=== PATIENT | female | born 1990 | race Caucasian/White ===

== ENCOUNTER 2017-04-14 22:59 | Outpatient (CLI) | payer OTHER ==
[2017-04-15 01:32] LABS: ADD UMIC YES; UR ASCORBIC ACID NEGATIVE (NEGATIVE); UR BACTERIA FEW /HPF (NONE SEEN); UR BILIRUBIN (Dip) NEGATIVE (NEGATIVE); UR BLOOD (Dip) NEGATIVE (NEGATIVE); UR CLARITY CLEAR (CLEAR); UR COLOR STRAW (YELLOW); UR GLUCOSE (Dip) NEGATIVE (NEGATIVE); UR KETONES (Dip) NEGATIVE (NEGATIVE); UR LEUKOCYTE ESTERASE (Dip) 3+ Leu/ul (NEGATIVE); UR NITRITE (Dip) NEGATIVE (NEGATIVE); UR RBC 1 /HPF (0-5); UR SPECIFIC GRAVITY (Dip) 1.006 (1.003-1.030); UR TOTAL PROTEIN (Dip) NEGATIVE (NEGATIVE); UR UROBILINOGEN (Dip) NEGATIVE (NEGATIVE); UR WBC 1 /HPF (0-5)
== END 2017-04-15 02:30 | disposition home or self-care (01) ==
LOC: OBT 22:59 → L-D 23:01
DX: O26.892 Other specified pregnancy related conditions, second trimester (principal); Z3A.27 27 weeks gestation of pregnancy; R10.2 Pelvic and perineal pain
CPT/HCPCS: 76817; 81001

== ENCOUNTER 2017-05-27 12:09 | Outpatient (CLI) | payer OTHER ==
[2017-05-27 13:15] LABS: ADD UMIC YES; UR ASCORBIC ACID NEGATIVE (NEGATIVE); UR BACTERIA FEW /HPF (NONE SEEN); UR BILIRUBIN (Dip) NEGATIVE (NEGATIVE); UR BLOOD (Dip) NEGATIVE (NEGATIVE); UR CLARITY SLIGHTLY CLOUDY (CLEAR); UR COLOR YELLOW (YELLOW); UR GLUCOSE (Dip) NEGATIVE (NEGATIVE); UR KETONES (Dip) NEGATIVE (NEGATIVE); UR LEUKOCYTE ESTERASE (Dip) 3+ Leu/ul (NEGATIVE); UR NITRITE (Dip) NEGATIVE (NEGATIVE); UR RBC 1 /HPF (0-5); UR SPECIFIC GRAVITY (Dip) 1.013 (1.003-1.030); UR SQUAMOUS EPITHELIAL CELL FEW /HPF (FEW); UR TOTAL PROTEIN (Dip) NEGATIVE (NEGATIVE); UR UROBILINOGEN (Dip) NEGATIVE (NEGATIVE); UR WBC 16 /HPF (0-5)
== END 2017-05-27 14:10 | disposition home or self-care (01) ==
LOC: OBT 12:09 → L-D 12:11 → OBT 14:10
DX: O62.9 Abnormality of forces of labor, unspecified (principal); Z3A.33 33 weeks gestation of pregnancy
CPT/HCPCS: 76818; 81001; 82731

== ENCOUNTER 2017-05-31 12:19 | Outpatient (CLI) | payer OTHER ==
[2017-05-31 13:30] LABS: RUPTURE FETAL MEMBRANES NEGATIVE (NEGATIVE)
== END 2017-05-31 14:35 | disposition home or self-care (01) ==
LOC: OBT 12:19 → L-D 12:21 → OBT 14:35
DX: O41.93X0 Disorder of amniotic fluid and membranes, unspecified, third trimester, not applicable or unspecified (principal); O60.03 Preterm labor without delivery, third trimester; Z3A.33 33 weeks gestation of pregnancy
CPT/HCPCS: 76818; 84112

== ENCOUNTER 2017-06-07 21:27 | Outpatient (CLI) | payer OTHER | END 2017-06-07 23:03 | disposition home or self-care (01) | LOC: OBT 21:27 → L-D 21:29 → OBT 23:03 | DX: O26.893 Other specified pregnancy related conditions, third trimester (principal); Z3A.34 34 weeks gestation of pregnancy; J02.9 Acute pharyngitis, unspecified; R05 Cough; M54.5 Low back pain | CPT/HCPCS: Z7500 ==

== ENCOUNTER 2017-06-17 21:50 | Outpatient (CLI) | payer OTHER | END 2017-06-17 23:52 | disposition home or self-care (01) | LOC: OBT 21:50 → L-D 21:50 | DX: O47.03 False labor before 37 completed weeks of gestation, third trimester (principal); Z3A.36 36 weeks gestation of pregnancy | CPT/HCPCS: Z7500 ==

== ENCOUNTER 2017-06-22 12:34 | Outpatient (CLI) | payer OTHER | END 2017-06-22 14:30 | disposition home or self-care (01) | LOC: OBT 12:34 → L-D 12:41 → OBT 14:30 | DX: O76 Abnormality in fetal heart rate and rhythm complicating labor and delivery (principal); Z3A.36 36 weeks gestation of pregnancy | CPT/HCPCS: 76818 ==

== ENCOUNTER 2017-06-24 21:04 | Outpatient (CLI) | payer OTHER | END 2017-06-24 22:15 | disposition home or self-care (01) | LOC: OBT 21:04 → L-D 21:05 → OBT 22:15 | DX: O62.9 Abnormality of forces of labor, unspecified (principal); Z3A.37 37 weeks gestation of pregnancy | CPT/HCPCS: Z7500 ==

== ENCOUNTER 2017-07-05 20:52 | Inpatient (IN) | payer OTHER ==
[2017-07-05 23:06] LABS: AMPHETAMINE/METHAMPHETAMINE Negative (NEGATIVE); BARBITURATES Negative (NEGATIVE); BENZODIAZEPINES Negative (NEGATIVE); CANNABINOIDS Negative (NEGATIVE); COCAINE Negative (NEGATIVE); OPIATES Negative (NEGATIVE)
[2017-07-05] MEDS ORDERED: MISOPROSTOL 200 MCG TAB PR (23:30)
[2017-07-05] MEDS ORDERED: BUTORPHANOL 2 MG INJ IV (23:30)
[2017-07-05] MEDS ORDERED: CARBOPROST 250 MCG INJ IM (23:30)
[2017-07-05] MEDS ORDERED: OXYTOCIN 30 UNITS/LR 500 ML IV (23:30)
[2017-07-05] MEDS ORDERED: LIDOCAINE 1% (MPF) 30 ML INJ INJ (23:30)
[2017-07-05] MEDS ORDERED: METHYLERGONOVINE 0.2 MG INJ IM (23:30)
[2017-07-05] MEDS: LACTATED RINGER'S 1,000 ML IV (23:56)
[2017-07-05] MEDS: AMPICILLIN 2 GM/NS (PMX) 100 ML IV (23:58)
[2017-07-06 00:11] LABS: ADD MAN DIFF? NO
[2017-07-06 00:19] LABS: WHITE BLOOD COUNT 11.5 10^3/ul (4.8-10.8)
[2017-07-06 00:19] LABS: BASOPHIL # 0.1 10^3/ul (0.0-0.1); BASOPHILS % 0.4 % (0.0-2.0); EOSINOPHILS # 0.1 10^3/ul (0.0-0.5); EOSINOPHILS % 0.9 % (0.0-7.0); HEMOGLOBIN 12.7 g/dl (12.0-16.0); LYMPHOCYTES # 2.2 10^3/ul (0.8-2.9); LYMPHOCYTES % 19.3 % (15.0-51.0); MEAN CORPUSCULAR HEMOGLOBIN 31.6 pg (29.0-33.0); MEAN CORPUSCULAR HGB CONC 36.3 g/dl (32.0-37.0); MEAN CORPUSCULAR VOLUME 87.1 fl (82.0-101.0); MEAN PLATELET VOLUME 9.3 fl (7.4-10.4); MONOCYTE # 0.6 10^3/ul (0.3-0.9); MONOCYTES % 5.6 % (0.0-11.0); NEUTROPHIL # 8.5 10^3/ul (1.6-7.5); NEUTROPHILS % 73.2 % (39.0-77.0); PLATELET COUNT 182 10^3/UL (140-415); RED BLOOD COUNT 4.02 10^6/ul (4.20-5.40); RED CELL DISTRIBUTION WIDTH 12.4 % (11.5-14.5)
[2017-07-06 00:39] LABS: INR 0.88; PT RATIO 0.9
[2017-07-06 00:40] LABS: PARTIAL THROMBOPLASTIN TIME 28.6 Sec (25.0-35.0)
[2017-07-06 00:46] LABS: ALANINE AMINOTRANSFERASE 17 IU/L (13-69); ALBUMIN 3.3 g/dl (3.3-4.9); ALBUMIN/GLOBULIN RATIO 1.03; ALKALINE PHOSPHATASE 183 IU/L (42-121); ANION GAP 12 (8-16); ASPARTATE AMINO TRANSFERASE 19 IU/L (15-46); BILIRUBIN,INDIRECT 0.3 mg/dl (0-1.1); BILIRUBIN,TOTAL 0.3 mg/dl (0.2-1.3); BLOOD UREA NITROGEN 8 mg/dl (7-20); CALCIUM 8.7 mg/dl (8.4-10.2); CARBON DIOXIDE 25 mmol/L (21-31); CHLORIDE 107 mmol/L (97-110); CREATININE 0.46 mg/dl (0.44-1.00); GLUCOSE 84 mg/dl (70-220); POTASSIUM 3.7 mmol/L (3.5-5.1); SODIUM 140 mmol/L (135-144); TOTAL PROTEIN 6.5 g/dl (6.1-8.1)
[2017-07-06] MEDS: LACTATED RINGER'S 1,000 ML IV ×3 (00:57→16:25)
[2017-07-06 01:15] LABS: HEPATITIS B SURFACE ANTIGEN NEGATIVE (NEGATIVE)
[2017-07-06] MEDS ORDERED: ONDANSETRON 4 MG INJ IV (01:30)
[2017-07-06] MEDS ORDERED: NALOXONE (0.4 MG/ML) INJ IV (01:30)
[2017-07-06] MEDS ORDERED: DIPHENHYDRAMINE 50 MG INJ IV (01:30)
[2017-07-06] MEDS: AMPICILLIN 1 GM/NS (PMX) 50 ML IV ×6 (03:17→23:29)
[2017-07-06] MEDS: OXYTOCIN 30 UNITS/LR 500 ML IV ×3 (09:39→23:51)
[2017-07-06] MEDS: FENTAnyl 2MCG/ML-ROPIV 0.2% 100 ML BAG EPI ×2 (09:57→18:13)
[2017-07-06 20:07] LABS: RAPID PLASMA REAGIN NONREACTIVE (NR)
[2017-07-07] MEDS ORDERED: NA PHOSPHATE/BIPHOS 133 ML ENEMA PR
[2017-07-07] MEDS ORDERED: MAGNESIUM HYDROXIDE 30ML CUP PO
[2017-07-07] MEDS ORDERED: ONDANSETRON 4 MG TAB PO
[2017-07-07] MEDS ORDERED: OXYTOCIN 30 UNITS/LR 500 ML IV
[2017-07-07] MEDS ORDERED: DIPHENHYDRAMINE 25 MG CAP PO
[2017-07-07] MEDS ORDERED: DIPHENHYDRAMINE 50 MG INJ IV
[2017-07-07] MEDS ORDERED: MISOPROSTOL 200 MCG TAB PR
[2017-07-07] MEDS ORDERED: DIBUCAINE 1% 30 GM OINT PR
[2017-07-07] MEDS ORDERED: ONDANSETRON 4 MG INJ IV
[2017-07-07] MEDS ORDERED: CARBOPROST 250 MCG INJ IM
[2017-07-07] MEDS ORDERED: HYDROCODONE/APAP (5/325) TAB PO
[2017-07-07] MEDS ORDERED: SENNA/DOCUSATE NA (8.6MG/50MG) TAB PO
[2017-07-07] MEDS: IBUPROFEN 600 MG TAB PO ×5 (01:24→18:08)
[2017-07-07] MEDS: MINERAL OIL LIGHT 10 ML VIAL TOP (02:00)
[2017-07-07] MEDS: LACTATED RINGER'S 1,000 ML IV* ×2 (02:00→07:59)
[2017-07-07] MEDS: BENZOCAINE 20% 56 ML SPRAY TOP (06:57)
[2017-07-07] MEDS: LANOLIN 7 GM TUBE TOP (06:57)
[2017-07-07] MEDS: WITCH HAZEL/GLYCERIN PAD PR (06:57)
[2017-07-07] MEDS: LACTATED RINGER'S 1,000 ML IV (07:17)
[2017-07-07] MEDS: SENNA/DOCUSATE NA (8.6MG/50MG) TAB PO ×2 (09:18→20:39)
[2017-07-07 10:01] LABS: ADD MAN DIFF? NO
[2017-07-07 10:03] LABS: BASOPHIL # 0.1 10^3/ul (0.0-0.1); BASOPHILS % 0.4 % (0.0-2.0); EOSINOPHILS # 0.1 10^3/ul (0.0-0.5); EOSINOPHILS % 0.5 % (0.0-7.0); HEMOGLOBIN 11.3 g/dl (12.0-16.0); LYMPHOCYTES # 1.8 10^3/ul (0.8-2.9); MEAN CORPUSCULAR HEMOGLOBIN 31.2 pg (29.0-33.0); MEAN CORPUSCULAR HGB CONC 35.3 g/dl (32.0-37.0); MEAN CORPUSCULAR VOLUME 88.4 fl (82.0-101.0); MEAN PLATELET VOLUME 9.3 fl (7.4-10.4); MONOCYTE # 0.7 10^3/ul (0.3-0.9); MONOCYTES % 5.6 % (0.0-11.0); NEUTROPHIL # 10.2 10^3/ul (1.6-7.5); NEUTROPHILS % 78.8 % (39.0-77.0); PLATELET COUNT 173 10^3/UL (140-415); RED BLOOD COUNT 3.62 10^6/ul (4.20-5.40); RED CELL DISTRIBUTION WIDTH 12.8 % (11.5-14.5)
[2017-07-07 10:03] LABS: WHITE BLOOD COUNT 12.9 10^3/ul (4.8-10.8)
[2017-07-08] MEDS: IBUPROFEN 600 MG TAB PO ×5 (00:21→23:18)
[2017-07-08] MEDS: MEASLES,MUMPS,RUBELLA VACCINE INJ SC* (08:57)
[2017-07-08] MEDS: DIPHTH/TET/ACEL PERTUSS (ADULT) 0.5 ML VIAL IM* (08:57)
[2017-07-08] MEDS: SENNA/DOCUSATE NA (8.6MG/50MG) TAB PO ×2 (08:57→21:57)
[2017-07-08] MEDS: VARICELLA VACCINE LIVE/PF 1,350 UNIT/0.5 ML ML SC* (08:57)
[2017-07-08] MEDS: WITCH HAZEL/GLYCERIN PAD PR (21:57)
[2017-07-08] MEDS: BENZOCAINE 20% 56 ML SPRAY TOP (21:58)
[2017-07-09] MEDS: IBUPROFEN 600 MG TAB PO ×2 (05:41→12:20)
[2017-07-09] MEDS: SENNA/DOCUSATE NA (8.6MG/50MG) TAB PO (08:50)
[2017-07-09] MEDS: HYDROCODONE/APAP (5/325) TAB PO (08:51)
== END 2017-07-09 12:57 | disposition home or self-care (01) | DRG 775 ==
LOC: OBT 20:52 → PP1 07-07 01:43 → L-D 20:53 → OBT 23:15 → L-D 23:15
PROC: 10E0XZZ Delivery of Products of Conception, External Approach (ICD-10-PCS; principal; 2017-07-07)
DX: O80 Encounter for full-term uncomplicated delivery (principal); Z3A.40 40 weeks gestation of pregnancy; Z37.0 Single live birth
CPT/HCPCS: 62319; 80053; 80307; 84560; 85025; 85610; 85730; 86592; 86850; 86900; 86901; 87340

== ENCOUNTER 2017-11-28 03:30 | Emergency (ER) | payer OTHER ==
[2017-11-28] MEDS: LORAZEPAM 2 MG INJ IV (05:02)
[2017-11-28] MEDS: SOD CHLORIDE 0.9% 1,000 ML IV (05:10)
[2017-11-28 05:15] LABS: ADD MAN DIFF? NO
[2017-11-28 05:16] LABS: BASOPHILS % 0.5 % (0.0-2.0); EOSINOPHILS % 0.4 % (0.0-7.0); HEMATOCRIT 39.5 % (37.0-47.0); HEMOGLOBIN 13.5 g/dl (12.0-16.0); LYMPHOCYTES # 2.4 10^3/ul (0.8-2.9); LYMPHOCYTES % 32.2 % (15.0-51.0); MEAN CORPUSCULAR HEMOGLOBIN 28.7 pg (29.0-33.0); MEAN CORPUSCULAR HGB CONC 34.2 g/dl (32.0-37.0); MEAN PLATELET VOLUME 9.1 fl (7.4-10.4); MONOCYTE # 0.6 10^3/ul (0.3-0.9); MONOCYTES % 7.7 % (0.0-11.0); NEUTROPHIL # 4.4 10^3/ul (1.6-7.5); NEUTROPHILS % 58.9 % (39.0-77.0); PLATELET COUNT 284 10^3/UL (140-415); RED CELL DISTRIBUTION WIDTH 13.1 % (11.5-14.5)
[2017-11-28 05:16] LABS: WHITE BLOOD COUNT 7.5 10^3/ul (4.8-10.8)
[2017-11-28 05:39] LABS: BARBITURATES Negative (NEGATIVE); BENZODIAZEPINES Negative (NEGATIVE); CANNABINOIDS Negative (NEGATIVE); COCAINE Negative (NEGATIVE); OPIATES Negative (NEGATIVE)
[2017-11-28 05:45] LABS: AMPHETAMINE/METHAMPHETAMINE Positive (NEGATIVE)
[2017-11-28 05:53] LABS: ALANINE AMINOTRANSFERASE 25 IU/L (13-69); ALBUMIN 3.9 g/dl (3.3-4.9); ALBUMIN/GLOBULIN RATIO 1.14; ALKALINE PHOSPHATASE 68 IU/L (42-121); ANION GAP 13 (8-16); ASPARTATE AMINO TRANSFERASE 25 IU/L (15-46); BILIRUBIN,INDIRECT 0.6 mg/dl (0-1.1); BILIRUBIN,TOTAL 0.6 mg/dl (0.2-1.3); BLOOD UREA NITROGEN 9 mg/dl (7-20); CARBON DIOXIDE 26 mmol/L (21-31); CHLORIDE 107 mmol/L (97-110); CREATININE 0.57 mg/dl (0.44-1.00); GLUCOSE 93 mg/dl (70-220); POTASSIUM 3.3 mmol/L (3.5-5.1); SODIUM 143 mmol/L (135-144); TOTAL PROTEIN 7.3 g/dl (6.1-8.1)
[2017-11-28 06:03] LABS: B-TYPE NATRIURETIC PEPTIDE 72 PG/ML (0-125); TROPONIN-I < 0.012 ng/ml (0.000-0.120)
== END 2017-11-28 06:47 | disposition home or self-care (01) ==
LOC: E/R 06:47
DX: F15.10 Other stimulant abuse, uncomplicated (principal); F17.210 Nicotine dependence, cigarettes, uncomplicated
CPT/HCPCS: 36415; 71045; 80053; 80307; 81025; 83880; 84484; 85025; 93005; 96374; 99285-25